=== PATIENT | female | born 1985 | race African-American/Black ===

== ENCOUNTER → 2016-05-25 | Outpatient (CLI) | payer SELFPAY ==
[~2016-05-25] MED LIST: NO MEDICATIONS
== END | disposition home or self-care (01) ==
LOC: CBAR 09:53
DX: Z01.818 Encounter for other preprocedural examination (principal); E66.01 Morbid (severe) obesity due to excess calories
CPT/HCPCS: G0463

== ENCOUNTER → 2016-06-15 | Outpatient (CLI) | payer SELFPAY | END | disposition home or self-care (01) | LOC: CBAR 12:43 | DX: Z01.818 Encounter for other preprocedural examination (principal); E66.01 Morbid (severe) obesity due to excess calories | CPT/HCPCS: G0463 ==

== ENCOUNTER → 2016-07-13 | Outpatient (CLI) | payer SELFPAY | END | disposition home or self-care (01) | LOC: CBAR 06:35 | DX: Z01.818 Encounter for other preprocedural examination (principal); E66.01 Morbid (severe) obesity due to excess calories | CPT/HCPCS: G0463 ==

== ENCOUNTER → 2016-08-06 | Outpatient (CLI) | payer BC ==
--- NOTE | ~2016-08-06 | CR97 ---
[facility] A Service of [facility] RADIOLOGY TEXT RESULTS PATIENT: BARRY GEORGE LOCATION: [facility] : 85 UNIT #: [id number] AGE: [address]: Jalen Conti MD SEX: F ORDER DR: [id number] [address] [address] [id number] O MR#: [id number] Acc #: [id number] NAME: BARRY GEORGE : 1985 SEX: F STUDY DATE/TIME: 08/06/2016 8:37 UNIT: [facility] ROOM: STUDY DESCRIPTION: CR Esophagram Attending Physician: Jalen Conti M.D. Ordering Physician: Jalen Conti M.D. MEDICAL IMAGING REPORT This report is preliminary unless electronic signature is present EXAMINATION Esophagram with fluoroscopy DATE 08/06/2016 HISTORY Preop evaluation for laparoscopic adjustable gastric band placement. COMPARISON None. FINDINGS Spot fluoroscopic imaging was obtained of the esophagus with attention to the esophagogastric junction. Normal esophageal peristaltic stripping wave is demonstrated. No spontaneous reflux is demonstrated. No hiatal hernia is seen. No high-grade stricture is identified. IMPRESSION 1. Normal esophagram with fluoroscopy. 2. Fluoroscopy time 0.3 minutes. 26 fluoroscopic images obtained. Dictated by... Dianna Molina M.D. THIS IS AN ELECTRONICALLY VERIFIED REPORT Dianna Molina M.D. at 08/06/2016 4:35 PM [facility]/daryl TD: 08/06/2016 14:47 JOB #: [id number] [facility] A Service [facility] RADIOLOGY TEXT RESULTS PATIENT: BARRY GEORGE LOCATION: [facility] : 85 UNIT #: [id number] AGE: [address]: Jalen Conti MD SEX: F ORDER DR: MEDICAL IMAGING REPORT Page 1 of 1 COPY
--- NOTE | ~2016-08-06 | CR63 ---
[facility] A Service of [facility] RADIOLOGY TEXT RESULTS PATIENT: BARYR GEORGE LOCATION: [facility] : 85 UNIT #: [id number] AGE: [address]: Jalen Conti MD SEX: F ORDER DR: [id number] [facility] [address] [place], [place] [address] [id number] O MR#: [id number] Acc #: [id number] NAME: BARRY GEORGE : 1985 SEX: F STUDY DATE/TIME: 08/06/2016 7:57 UNIT: [facility] ROOM: STUDY DESCRIPTION: CR Chest 2 View Attending Physician: Jalen Conti M.D. Ordering Physician: Jalen Conti M.D. MEDICAL IMAGING REPORT This report is preliminary unless electronic signature is present EXAM Chest x-ray, 08/06. INDICATION Preoperative exam for gastric band placement. Morbid obesity. COMPARISON None FINDINGS PA and lateral examination of the chest upright shows a good expansion of the parenchyma with a normal distribution of the pulmonary vascularity. There is no indication of congestion, effusion, infiltrate, tumor, or nodular density. The pleural reflections and diaphragmatic contours are normal. The cardiac silhouette and mediastinal anatomy is within normal limits. IMPRESSION Normal chest. Dictated by... Edis Sampson Jr., M.D. THIS IS AN ELECTRONICALLY VERIFIED REPORT Edis Sampson Jr., M.D. at 08/06/2016 3:53 PM [facility]/kali TD: 08/06/2016 10:55 JOB #: [id number] MEDICAL IMAGING REPORT [facility] A Service of [facility] RADIOLOGY TEXT RESULTS PATIENT: BARRY GEORGE LOCATION: [facility] : 85 UNIT #: [id number] AGE: [address]: Jalen Conti MD SEX: F ORDER DR: Page 1 of 1 COPY
--- NOTE | ~2016-08-06 | EKG ---
PATIENT: BARRY GEORGE UNIT #: [id number] Ventricular Rate: 72 BPM Atrial Rate: 72 BPM P-R Interval: 164 ms QRS Duration: 90 ms Q-T Interval: 390 ms QTC Calculation(Bezet): 427 ms P [place]: 55 degrees Calculated R [place]: 31 degrees Calculated T [place]: 10 degrees Diagnosis Line: Normal sinus rhythm Diagnosis Line: Possible Left atrial enlargement Diagnosis Line: Borderline ECG Diagnosis Line: No previous ECGs available Diagnosis Line: Confirmed by DACIA CURTIS MD ([id number]) on Diagnosis Line: 08/07/2016 1:38:24 PM INTERPRETING MD: YAMILKA
[2016-08-06 09:46] LABS: HEMATOCRIT 36.5 % (35.0-45.0); MEAN CELL VOLUME 73.5 FL (83-96); MEAN CORPUSCULAR HEMOGLOBIN 24.2 PG (28-34); MEAN CORPUSCULAR HGB CONC 32.8 g/dL (30-36); MEAN PLATELET VOLUME 7.4 FL (6.5-11.5); RED BLOOD COUNT 4.96 X10e (3.90-5.30); RED CELL DISTRIBUTION WIDTH 17.1 % (11.0-15.5); WHITE BLOOD COUNT 14.5 X10e3 (4.0-10.5)
[2016-08-06 10:43] LABS: BILIRUBIN,TOTAL 0.8 mg/dL (0.2-2.0); CALCIUM SERUM 9.3 mg/dL (8.4-10.2); CREATININE SERUM 0.5 mg/dL (0.6-1.4); GLOM FILT RATE Estimated 149.5 mL/min (>60); PROTEIN TOTAL SERUM 7.2 g/dL (6.0-8.3)
== END | disposition home or self-care (01) ==
LOC: CRAD 07:43
PROVIDERS: Surgery
DX: Z01.818 Encounter for other preprocedural examination (principal); E66.01 Morbid (severe) obesity due to excess calories
CPT/HCPCS: 36415; 71020; 74220; 80053; 80061; 84443; 85027; 93005

== ENCOUNTER → 2016-08-18 | Day surgery (SDC) | payer BC ==
--- NOTE | ~2016-08-18 | CR7 ---
[facility] A Service of [facility] RADIOLOGY TEXT RESULTS PATIENT: BARRY GEORGE LOCATION: [facility] : 85 UNIT #: [id number] AGE: [address]: Jalen Conti MD SEX: F ORDER DR: [id number] [facility] [address] [place], [place] [address] [id number] O MR#: [id number] Acc #: [id number] NAME: BARRY GEORGE : 1985 SEX: F STUDY DATE/TIME: 08/18/2016 11:06 UNIT: [facility] ROOM: STUDY DESCRIPTION: CR Abdomen Single AP View Attending Physician: Jalen Conti M.D. Ordering Physician: Jalen Conti M.D. Primary Care Physician: Mahi Marley A.P.R.N. MEDICAL IMAGING REPORT This report is preliminary unless electronic signature is present EXAM Abdomen one-view, 08/18/2016 11:06 hours HISTORY Postop lap-band placement today. Morbid obesity, abdominal pain. COMPARISON Esophagram, 08/06/2016 FINDINGS Single supine view of the abdomen demonstrates placement of a Lap-Band overlying the left T10 costovertebral articulation oriented at 55 degrees from vertical. Radiopaque tubing courses inferiorly to a port overlying the midline L3-4 disc space level. There are clips consistent with prior cholecystectomy. Bowel gas pattern unremarkable. IMPRESSION New Lap-Band overlaps the left T10 costovertebral junction oriented at 55 degrees from vertical. Radiopaque tubing courses to a port overlying the left aspect of the L3-4 disc space. Dictated by... Sumaya Iraheta M.D. THIS IS AN ELECTRONICALLY VERIFIED REPORT Sumaya Iraheta M.D. at 08/18/2016 2:29 PM [place] TD: 08/18/2016 11:36 JOB #: [id number] MEDICAL IMAGING REPORT Page 1 of 1 COPY
--- NOTE | ~2016-08-18 | OR ---
Unit #: [id number] #: [id number] Patient: BARRY GEORGE [id number] [address] [address] [id number] O MR#: [id number] NAME: BARRY GEORGE ROOM: Date of Procedure: 08/18/2016 Admission Date: 08/18/2016 Surgeon: Jalen Conti M.D. : 1985 Attending Physician: Jalen Conti M.D. Primary Care Physician: Mahi Marley A.P.R.N. OPERATIVE REPORT PREOPERATIVE DIAGNOSIS Chronic morbid obesity. Body mass index of 49. POSTOPERATIVE DIAGNOSES 1. Chronic morbid obesity. Body mass index of 49. 2. Paraesophageal hiatal hernia. PROCEDURES PERFORMED 1. Laparoscopic adjustable gastric band. 2. Laparoscopic paraesophageal hiatal hernia repair. [employer] Homar Perera M.D. ANESTHESIA General. ESTIMATED BLOOD LOSS Minimal. IV FLUIDS 800 crystalloid. COMPLICATIONS None. INDICATIONS FOR PROCEDURE The patient is a 31-year-old with chronic morbid obesity. DESCRIPTION OF PROCEDURE The patient was taken to the operating room and placed in supine position. General anesthesia was induced. The abdomen was prepped and draped. A 3-cm incision was then made left of the midline. A 10-mm Visiport was then placed intraabdominal under direct vision. The abdomen was insufflated to 15 mmHg with CO2. The patient was then placed in a steep reversed Trendelenburg. General inspection of the abdomen revealed what appeared to be a paraesophageal hernia. This was identified with a defect at the diaphragm using anterior palpation with the instrument. We then made a small incision in the subxiphoid region. A [place] liver retractor was then placed intraabdominal and used to retract the left lobe of the liver upward to further expose the paraesophageal hernia and GE junction. I then placed a 5-mm port in the right upper quadrant, a 10-mm Unit #: [id number] #: [id number] Patient: BARRY GEORGE port in the left upper quadrant, and another 5-mm port in the left lower quadrant. The stomach was retracted medial and downward. Upon retracting the stomach, we took down the paraesophageal ligament, exposing the right and left uriel at the paraesophageal hernia. Any hernia sac was reduced. We then repaired the paraesophageal hernia using interrupted #0 Ethibond sutures in a [id number] type fashion. This formed a snug repair to the anterior esophagus. We then retracted the stomach medially and further exposed the angle of His using Bovie electrocautery. The stomach was then retracted laterally. We then took down the hepatogastric ligament with Bovie electrocautery. This exposed the right uriel. Using blunt dissection, I created a retrogastric tunnel from this point to the angle of His. The band was then placed intraabdominal through the 10-mm port site. This was then brought through the retrogastric tunnel in a pars flaccida technique. The band was then closed anteriorly to form a 20-mL to 25-mL anterior gastric pouch. The fundus was then secured to the anterior pouch to prevent movement around the stomach using two interrupted #0 Ethibond sutures. A third suture was then used as a gathering stitch from the lesser curve to the anterior stomach, gathering and imbricating the remaining fundus of the stomach. The tubing was then brought out through the midline 10-mm port site. All ports and the [place] liver retractor were removed under direct vision with no evidence of abdominal hemorrhage. A polypropylene mesh was then secured to the posterior face of the laparoscopic band port. This was secured using #0 Ethibond suture. This was then cut to shape. The port was then connected to the tubing and placed into a subcutaneous pocket just anterior to the rectus sheath. Its position was then confirmed. All tubing was then placed intraabdominal. The wounds were then closed with interrupted 4-0 Vicryl. The patient tolerated the procedure well and was sent to the recovery room in good condition. Dictated by... Ronnie Argueta/jovani TD: 08/19/2016 02:17 JOB #: [id number] OPERATIVE REPORT Page 1 of 1 X Jalen Conti MD X PROCEDURE OPERATIVE NOTE
[2016-08-18 08:30] LABS: HEMATOCRIT 36.9 % (35.0-45.0); HEMOGLOBIN 12.3 gm/dL (12.0-16.0); MEAN CELL VOLUME 74.2 FL (83-96); MEAN CORPUSCULAR HEMOGLOBIN 24.7 PG (28-34); MEAN CORPUSCULAR HGB CONC 33.3 g/dL (30-36); MEAN PLATELET VOLUME 7.3 FL (6.5-11.5); RED BLOOD COUNT 4.98 X10e (3.90-5.30); RED CELL DISTRIBUTION WIDTH 16.9 % (11.0-15.5); WHITE BLOOD COUNT 9.8 X10e3 (4.0-10.5)
== END | disposition home or self-care (01) ==
LOC: CSUR 07:04
PROVIDERS: Surgery
DX: E66.01 Morbid (severe) obesity due to excess calories (principal); K44.9 Diaphragmatic hernia without obstruction or gangrene; Z68.42 Body mass index [BMI] 45.0-49.9, adult; Z86.718 Personal history of other venous thrombosis and embolism
CPT/HCPCS: 74000; 84703; 85027; C1781; J0330; J0690; J1650; J1885; J2250; J2405; J2710; J3010; L8699